=== PATIENT | female | born 1955 | race Caucasian/White ===

== ENCOUNTER 2020-07-19 06:41 | Outpatient (REF) | payer OTHER, SELFPAY ==
--- NOTE | ~2020-07-19 | XR_ITS ---
EXAMINATION: XR ELBOW, RIGHT CLINICAL INFORMATION: Fracture radial head. COMPARISON: 02/05/2021 x-ray. TECHNIQUE: AP, lateral, and oblique views of the right elbow. FINDINGS: There is sclerosis and subtle areas of lucency in the radial head suggesting some interval healing of the radial head fracture. Normal alignment at the elbow joint. Joint spaces are maintained. No additional discrete acute fracture is seen. No significant joint effusion is seen. XR/XR elbow RT min 3V IMPRESSION: Findings suggest partial healing of the radial head fracture.
== END 2020-07-19 06:42 | disposition home or self-care (01) ==
LOC: HO.LAB 06:41
PROVIDERS: Visit Provider Internal Medicine
DX: Z20.822 Contact with and (suspected) exposure to COVID-19 (principal)
CPT/HCPCS: 36415; C9803; U0003

== ENCOUNTER 2021-02-05 09:13 | Emergency (ER) | payer OTHER, SELFPAY ==
--- NOTE | ~2021-02-05 | XR_ITS ---
EXAMINATION: XR ELBOW, RIGHT CLINICAL INFORMATION: Right elbow pain status post injury. COMPARISON: None TECHNIQUE: AP, lateral, and oblique views of the right elbow. FINDINGS: The bones and soft tissues are normal. No fracture or joint effusion. Alignment is anatomic. Joint spaces are maintained. XR/XR elbow RT 2V IMPRESSION: Unremarkable right elbow.
--- NOTE | ~2021-02-05 | XR_ITS ---
EXAMINATION: XR ANKLE, RIGHT CLINICAL INFORMATION: Right ankle pain status post injury. COMPARISON: None TECHNIQUE: AP, lateral, and mortise views of the right ankle. FINDINGS: A transverse linear lucency is seen through the distal aspect of the lateral malleolus. The medial malleolus is intact. A small corticated osseous density seen along the inferolateral margin. The tibiotalar joint space is unremarkable. The soft tissues are unremarkable. XR/XR ankle RT 2V IMPRESSION: Transverse linear lucency through the distal aspect of the lateral malleolus could be secondary to chronic degenerative spurring. An acute nondisplaced fracture cannot be completely excluded. Correlate with physical exam.
--- NOTE | ~2021-02-05 | XR_ITS ---
EXAMINATION: XR FOOT, RIGHT CLINICAL INFORMATION: Base fifth toe tenderness. COMPARISON: January 23, 2017 TECHNIQUE: AP, lateral, and oblique views of the right foot. FINDINGS: There is no evidence of acute fracture or dislocation of the right foot. There is some mild degenerative change again seen involving the first metatarsophalangeal joint no radiopaque foreign body identified. Joint spaces are maintained. XR/XR foot RT 2V IMPRESSION: Mild degenerative change first metatarsophalangeal joint. Otherwise unremarkable right foot study.
[2021-02-05 09:25] VITALS: BP 153/67; PULSE 59; RESP 17; TEMP 36.9; O2SAT 96; BMI 28.1
--- NOTE | 2021-02-05 09:49 | ED_ITS ---
HPI - Fall General Chief Complaint: Fall Stated Complaint: FALL Time Seen by Provider: 02/05/21 09:49 Source: patient Mode of arrival: ambulatory Limitations: no limitations History of Present Illness HPI Narrative: patient fell yesterday on uneven ground, hit pavement with right elbow and right ankle. No LOC, did not hit head or neck. Today elbow and ankle are hurting. complaint: fall Onset (ago): day(s) Fall from: standing Fall witnessed: yes, by family Place fall occurred: other Loss of consciousness: none Related Data Previous Rx's Medication Instructions Recorded naproxen [Naprosyn] 500 mg PO BID #20 tab 02/05/21 Allergies Allergy/AdvReac Type Severity Reaction Status Date / Time No Known Allergies Allergy Verified 02/05/21 09:57 Review of Systems Constitutional: Constitutional: Reports no additional constitutional complaints Eyes: Eyes: Reports no additional eye complaints ENT: Denies dizziness Cardiovascular: Cardiovascular: Reports no additional cardiovascular complaints Respiratory: Respiratory: Reports as per HPI Gastrointestinal: Gastrointestinal: Reports no additional gastrointestinal complaints Genitourinary: Genitourinary: Reports no additional female genitourinary complaints Musculoskeletal: Musculoskeletal: Reports no additional musculoskeletal complaints Integumentary/Breasts: Skin/Breast: Denies rash Neurologic: Reports system reviewed and no additional complaints, except as documented, Denies dizziness and Denies Sensory deficit (Neuro) Psychiatric: Psychiatric: Denies anxiety [facility] Social History Social History Advance Directives: No Advance Directives Information Provided: No Physical Exam Vital Signs: Vital Signs: Last Vital Signs Temp 98.5 F 02/05/21 09:25 Pulse 59 02/05/21 09:25 Resp 17 02/05/21 09:25 BP 153/67 H 02/05/21 09:25 Pulse Ox 96 02/05/21 09:25 Body Mass Index 28.1 Const: General: healthy appearing Nutritional Appearance: average body habitus Orientation/consciousness: oriented to person and patient oriented x3 Limitations: no limitations HENMT: Head: Yes normal to inspection Ears: external ears normal General nose exam: Normal external nose present Mouth: Normal oral and palatal mucosa present and oropharynx normal Throat: Yes posterior oropharynx normal Eyes: General: appearance normal, both eyes and all related structures Neck: Other: supple Neck: Yes normal visual inspection Chest: Chest palpation & inspection: normal inspection of the chest Resp: Auscultation: clear to auscultation bilaterally Cardio: Jugular venous distension: no JVD Rate: regular rate Rhythm: regular rhythm Heart sounds: S1 normal heart sound present and S2 normal heart sound present GI: Inspection: Yes normal to inspection Palpation (GI): Soft to palpation, nontender and No hepatosplenomegaly present Auscultation: normal bowel sounds : General: Yes no CVA tenderness Back/Spine/Pelvis: Back: no CVA tenderness Skin: General skin exam: no rashes or lesions noted Neuro: General: oriented to person and patient oriented x3 Cranial nerves: Yes CN's II-XII intact bilaterally Motor exam (neuro): 5/5 motor strength present throughout Sensory Exam: No Sensory deficit (Neuro) Extrem: Other: right elbow with some swelling decreased range of motion, right foot with ecchymosis pain at the base of the 5th Psych: Appearance: grossly normal Course Reevaluation(s) Reevaluation #1: patient with right radial head fracture will place posterior splint on and place in sling Time: 10:59 MDM - Fall Imaging Data right foot: Radiologist's impression: IMPRESSION: Mild degenerative change first metatarsophalangeal joint. right elbow: Radiologist's impression: transverse fracture of radial head right ankle: Radiologist's impression: IMPRESSION: Transverse linear lucency through the distal aspect of the lateral malleolus could be secondary to chronic degenerative spurring. An acute nondisplaced fracture cannot be completely excluded. Correlate with physical exam. Discharge Plan Discharge Clinical Impression: Elbow fracture, right Qualifiers: Encounter type: initial encounter Fracture type: closed Qualified Code(s): S42.401A - Unspecified fracture of lower end of right humerus, initial encounter for closed fracture Contusion of foot Qualifiers: Encounter type: initial encounter Laterality: right Qualified Code(s): S90.31XA - Contusion of right foot, initial encounter Patient Disposition: Home, Self-Care Instructions: Elbow Fracture (ED), Foot Contusion (ED) Prescriptions: New naproxen [Naprosyn] 500 mg tablet 500 mg PO BID Qty: 20 RF: 0 Referrals: Andrea Bernal MD [Primary Care Provider] - 1 week Carrington Madera MD [Physician] - 1 week
[2021-02-05] MEDS: NaPROXEN 500 MG TABLET PO (10:46)
== END 2021-02-05 12:10 | disposition home or self-care (01) ==
PROVIDERS: Emergency Provider Emergency Medicine; PCP Internal Medicine
DX: S42.401A Unspecified fracture of lower end of right humerus, initial encounter for closed fracture (principal); S90.31XA Contusion of right foot, initial encounter; W01.0XXA Fall on same level from slipping, tripping and stumbling without subsequent striking against object, initial encounter; Y93.01 Activity, walking, marching and hiking; Y92.480 Sidewalk as the place of occurrence of the external cause; Y99.9 Unspecified external cause status
CPT/HCPCS: 29105; 73070; 73600; 73620; 99283

== ENCOUNTER → 2021-02-13 14:44 | Outpatient (BNVA) | payer OTHER, SELFPAY | PROVIDERS: Visit Provider Physician Assistant | DX: S52.123A Displaced fracture of head of unspecified radius, initial encounter for closed fracture (principal) ==

== ENCOUNTER → 2021-03-13 08:29 | Outpatient (BNVA) | payer OTHER, SELFPAY | PROVIDERS: PCP Internal Medicine; Visit Provider Physician Assistant | DX: S52.123A Displaced fracture of head of unspecified radius, initial encounter for closed fracture (principal) | CPT/HCPCS: 73080 ==

== ENCOUNTER 2024-10-02 08:41 | Outpatient (REF) | payer OTHER, SELFPAY ==
--- NOTE | ~2024-10-02 | XR_ITS ---
EXAMINATION: XR HIP, RIGHT CLINICAL INFORMATION: M25.551 - Pain in right hip COMPARISON: July 04, 2016. TECHNIQUE: Two views of the right hip. FINDINGS: Sclerosis along the articular surface of the right acetabulum right femoral head with associated subchondral cyst formation. There is asymmetric joint space narrowing, right coxofemoral joint. Sclerosis and the articular surface of the left acetabulum. Asymmetric joint space narrowing, left coxofemoral joint. Exostosis in the greater trochanters both femurs. No acute cortical disruption or malalignment in either hip. XR/XR hip RT min 2V IMPRESSION: Moderate to severe osteoarthrosis, right hip. Mild to moderate osteoarthrosis, left hip. Electronically signed by: Rico Christopher MD 10/05/2024 08:36 AM EDT
== END 2024-10-02 08:42 | disposition home or self-care (01) ==
LOC: HO.HOSX 08:41
PROVIDERS: Visit Provider Physician Assistant
DX: M25.551 Pain in right hip (principal); M16.11 Unilateral primary osteoarthritis, right hip
CPT/HCPCS: 73502; 99202

== ENCOUNTER 2024-10-02 10:05 | Outpatient (AMB) | payer MEDICARE, OTHER, SELFPAY ==
--- NOTE | 2024-10-02 10:13 | A.OFFVIS_ITS ---
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 Patient reports her pain has been present since April. Denies injury. Her pain is mostly located at the posterior aspect of hip and with stretching her leg she has discomfort in her groin. Her pain radiates down her leg to her knee and wraps around her knee. Her pain is constant and has difficulty sleeping at night. States at times her knee wants to give out, denies fall. She feels like she limps. She uses a knee sleeve that helps with pressure. She attended chiro services for a couple of months however this did not help. She also tried orthopedic and in soles which did not help. Finds temporary relief with taking ibuprofen prn at night. 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 She states the pain has been present since around April. She continues to have difficulty with daily activities such as walking, getting in and out of a car and getting out of a seated position. She states she used to walk with friends but has had to limit that given her difficulty with ambulation. She states the pain is located in the groin region which does go down her leg at times. She denies numbness or tingling. No burning sensation. No low back pain. [facility] Social History (Updated 10/02/24 @ 10:19 by Lilia Rollins Gem) Patient Tobacco Use Status: Never used Tobacco Current occupational status: retired Current occupation: right arm Review of Systems Const All systems reviewed & are unremarkable except as noted in HPI and below Physical Exam Vital Signs: BMI result Body Mass Index 25.5 Const General: cooperative and no acute distress Orientation/consciousness: patient oriented x3 Resp Effort & Inspection: normal respiratory effort and able to speak in complete sentences Cardio Peripheral pulses: Peripheral pulses 2+ throughout Neuro General: patient oriented x3 Extrem Other: Right hip normal to inspection limited range of motion on exam. She walks with antalgic gait. Neurovascularly intact. Results Reviewed Results Reviewed: X-rays of the right hip obtained in the office today are significant for severe degenerative changes Assessment & Plan Assessment & Plan (1) Arthritis of right hip: Code(s): M16.11 - Unilateral primary osteoarthritis, right hip Category: Medical Plan: We had a lengthy discussion about the extent of his OA and options available which include surgical intervention. She e is interested in pursuing total hip arthroplasty to improve her functional capacity and daily activities. I explained to her the procedure in detail, the hospital stay and details about post op rehab and precautions. She does understand all this and would like to move forward. I did put her in contact with our Nurse Navigator, Ekta who will set her up with pre op planning and book accordingly. All questions were answered. Orders: Orders XR hip RT min 2V 10/02/24 M25.551 - Pain in right hip Coding Level of Care Code New Pt Level 4 (08085) Complex EM visit Add On G2211 Diagnoses Arthritis of right hip M16.11
[2024-10-02 10:20] VITALS: BMI 25.5
== END 2024-10-02 11:11 | disposition home or self-care (01) ==
LOC: HO.HOS 10:06
PROVIDERS: PCP Internal Medicine; Visit Provider Physician Assistant
DX: M16.11 Unilateral primary osteoarthritis, right hip (principal)
CPT/HCPCS: 99204; G2211

== ENCOUNTER → 2024-10-02 10:07 | Outpatient (BNV) | payer OTHER, SELFPAY | PROVIDERS: Visit Provider Radiology Diagnostic Radiology | DX: M16.11 Unilateral primary osteoarthritis, right hip (principal) | CPT/HCPCS: 73502 ==

== ENCOUNTER 2024-11-09 09:26 | Outpatient (AMB) | payer MEDICARE, OTHER, SELFPAY ==
--- NOTE | 2024-11-09 09:29 | MHC.OFFVIS ---
Vital Signs 11/09/24 09:31 Height 5 ft 7 in Weight 165 lb BMI 25.8 Intake Visit Reasons: OV-discuss surgery- right HOMER Intake Note: Rebeka is a 69 year old female who presents today for a follow up of her Right Hip OA. She was last seen with Robbin Guardado where she reported pain ongoing since April of 2024. Her pain worsens and interferes with daily activities, pain occasionally will radiate down the entire leg. She would like to further discuss Right HOMER. Allergies No Known Allergies Allergy (Verified 10/02/24 10:18) HPI HPI OV-discuss surgery- right HOMER: Details: 69 yo F with ~9 mo of right groin and laterl hip pain. She has difficulty walking for more than 5 minutes. She has pain getting into and out of an automobile or twisting or going up and downstairs. She states quality of her life is poor. She can not engage in her daily activities without significant distress and pain. [facility] Social History (Updated 10/02/24 @ 10:19 by Lilia Rollins [facility] Patient Tobacco Use Status: Never used Tobacco Current occupational status: retired Current occupation: right arm Physical Exam Vital Signs: BMI result Body Mass Index 25.8 Extrem Other: Positive Trendelenburg gait. Positive antalgic gait. Positive impingement test. 2+ dorsalis pedis pulse. Firing EHL/tib ant/gastrocs. Calf soft and supple Results Reviewed Results Reviewed: I personally reviewed relevant radiographs. Severe right hip osteoarthritis Assessment & Plan Assessment & Plan (1) Arthritis of right hip: Code(s): M16.11 - Unilateral primary osteoarthritis, right hip Category: Medical Plan: This is a 69-year-old with right hip osteoarthritis that is severe. She is extremely healthy and her exam is benign other than right hip pain with internal rotation. I recommend right hip replacement. She understands her diagnosis and understands the treatment. I discussed the risks, benefits and alternatives of surgery including, but not limited to, the risk of infection, fracture, dislocation as well as medical complications associated with surgery such as pneumonia, urinary tract infections, blood clot, PE. She expressed understanding and we will proceed forward accordingly. Coding Level of Care Code Est Pt Level 4 (66610) Diagnoses Arthritis of right hip M16.11
[2024-11-09 09:31] VITALS: BMI 25.8
== END 2024-11-09 10:23 | disposition home or self-care (01) ==
LOC: HO.HOS 09:26
PROVIDERS: PCP Internal Medicine; Visit Provider Orthopaedic Surgery
DX: M16.11 Unilateral primary osteoarthritis, right hip (principal)
CPT/HCPCS: 99214

== ENCOUNTER → 2024-11-09 09:26 | Outpatient (BNVA) | payer MEDICARE, OTHER, SELFPAY | PROVIDERS: PCP Internal Medicine; Visit Provider Orthopaedic Surgery | DX: M16.11 Unilateral primary osteoarthritis, right hip (principal) | CPT/HCPCS: 99212 ==

== ENCOUNTER → 2025-01-11 08:45 | Outpatient (BNVA) | payer MEDICARE, OTHER, SELFPAY | PROVIDERS: PCP Internal Medicine | DX: Z01.818 Encounter for other preprocedural examination (principal) ==

== ENCOUNTER 2025-02-04 09:43 | Outpatient (AMB) | payer MEDICARE, OTHER, SELFPAY ==
--- NOTE | 2025-02-04 09:48 | MHC.OFFVIS ---
Vital Signs 02/04/25 09:52 Height 5 ft 7 in Weight 165 lb BMI 25.8 Intake Visit Reasons: Pre-Op: R HOMER w/NE 02/09/25 Intake Note: Rebeka is a 69 year old female who presents today for a preoperative RT HOMER, DOS 02/09/[address] Madera. Pain management agreement was given to patient to be reviewed and signed. Allergies No Known Allergies Allergy (Verified 02/04/25 09:52) Medication List - Last Reconciled 02/04/25 by Robbin Guardado PA-C acetaminophen (Acetaminophen Extra Strength) 500 mg PO DAILY PRN ascorbic acid (vitamin C) (Vitamin C) 500 mg PO DAILY aspirin (Adult Low Dose Aspirin) 81 mg PO DAILY ibuprofen 800 mg PO DAILY PRN zecneruh-dagvfyo-stij-lutein 1 tab PO DAILY [Raised toilet seat duration - 99 days] [SHOWER CHAIR As directed duration 99 days] walker Folding Front wheeled walker duration 99 days HPI Comments Details: Ms Thompson presents to the office today for preop visit. She is scheduled for right total hip arthroplasty with Dr. Madera. She continues to have ongoing pain and difficulty with ambulation in the right hip, which is affecting her quality of life; therefore, she has elected to move forward with surgery. No h/o cancer, smoking or DVT She has a walker at home [facility] Medical History (Updated 01/12/25 @ 10:06 by Bettie Dorsey RN) Arthritis Surgical History Hx of hernia repair Hx of wisdom tooth extraction H/O colonoscopy Social History Are you a primary career development consultant to a significant other at home: No Do you presently have visiting nurse or other home services: No Patient Tobacco Use Status: Former Tobacco user Tobacco use type: Cigarette Years Smoked: 20 Current occupational status: retired Current occupation: right arm Review of Systems Const All systems reviewed & are unremarkable except as noted in HPI and below Physical Exam Vital Signs: BMI result Body Mass Index 25.8 Extrem Other: Right hip skin intact. Positive Trendelenburg gait. Positive antalgic gait. Positive impingement test. 2+ dorsalis pedis pulse. Firing EHL/tib ant/gastrocs. Calf soft and supple Assessment & Plan Assessment & Plan (1) Arthritis of right hip: Code(s): M16.11 - Unilateral primary osteoarthritis, right hip Category: Medical Plan: I discussed in detail the procedure and what to expect pre and post operatively. We discussed the risks, benefits and alternatives to the surgery as well as the rehabilitation course. The risks; which include, but are not limited to infection, bleeding, nerve injury, ongoing pain, swelling, and stiffness, perioperative risk of injury to bones and soft tissues, and blood clots. I?ve answered all questions and with their understanding they have consented to move forward with Right total hip arthroplasty with Dr. Madera Her discharge plan is to go home with VNA services She has no history of DVT, cancer or smoking therefore she can be placed on aspirin 325 mg p.o. b.i.d. for DVT prophylaxis We discussed her postop physical therapy plan which [place] [facility] An order was placed and she was given their contact information to make an appointment to begin after her postop appointment. Orders: Orders Basic Metabolic Panel 02/04/25 Z01.818 - Encounter for other preprocedural examination Complete Blood Count Auto Diff 02/04/25 Z01.818 - Encounter for other preprocedural examination PT Evaluation and Treatment 02/04/25 Z96.641 - Presence of right artificial hip joint Type and Screen 02/04/25 Z01.818 - Encounter for other preprocedural examination Coding Level of Care Code Est Pt Level 3 (81647) Complex EM visit Add On G2211 Diagnoses Arthritis of right hip M16.11
[2025-02-04 09:52] VITALS: BMI 25.8
== END 2025-02-04 10:33 | disposition home or self-care (01) ==
LOC: HO.HOS 09:44
PROVIDERS: PCP Internal Medicine; Visit Provider Physician Assistant
DX: M16.11 Unilateral primary osteoarthritis, right hip (principal)
CPT/HCPCS: 99213; G2211

== ENCOUNTER → 2025-02-04 09:43 | Outpatient (BNVA) | payer MEDICARE, OTHER, SELFPAY | PROVIDERS: PCP Internal Medicine; Visit Provider Physician Assistant | DX: Z01.818 Encounter for other preprocedural examination (principal); M16.11 Unilateral primary osteoarthritis, right hip | CPT/HCPCS: 99212 ==

== ENCOUNTER 2025-02-09 07:48 | Day surgery (SDC) | payer MEDICARE, OTHER, SELFPAY ==
[2025-01-12 10:15] VITALS: BP 154/67; PULSE 73; RESP 20; O2SAT 98; BMI 26.2
--- NOTE | 2025-01-12 10:35 | HO.ANESPROP2 ---
Documented by User: Dorina Sims NP 02/08/25 08:44 HPI - Anesthesia Eval Consult details Narrative: 69yo F for Right Total Hip Arthroplasty, 02/09/25 Medically optimized per [facility] No recent illness No CP/SOB with stationary bike. Only limited by hip pain PMFSH Active Problems Active Problems: All Active Problems Arthritis of right hip (Acute) Radial head fracture (Acute) Past Medical History Medical History Arthritis Family History Family history of problems with anesthesia: No Surgical History Surgical History Hx of hernia repair Hx of wisdom tooth extraction H/O colonoscopy History of Problems with Anesthesia: No Social History Social History Are you a primary insurance healthcare representative to a significant other at home: No Do you presently have visiting nurse or other home services: No Patient Tobacco Use Status: Former Tobacco user Tobacco use type: Cigarette Years Smoked: 20 Use of substances other than those prescribed or required for medical reasons: No Have you been hit, kicked, punched, or otherwise hurt by someone within the past year? If so, by whom?: No Spiritual Healthcare Practices: no [facility] Practices: no Cultural Healthcare Practices: no Are you DNR?: No Advance Directives Information Provided: Yes (as above noted) Advance Directives on File: No FDLMP: n/a Poor oral hygiene: No (one cap upper right front and multiple crowns, permanent bridge) Current occupational status: retired Current occupation: right arm Meds Allergies Allergy/AdvReac Type Severity Reaction Status Date / Time No Known Allergies Allergy Verified 02/04/25 09:52 Home Medications ?Medication ?Instructions ?Recorded ?Confirmed ?Last Taken ?Type aspirin 81 mg tablet,delayed 81 mg PO DAILY 02/13/21 02/04/25 01/26/25 History release (Adult Low Dose Aspirin) jbaxehlj-huoqsia-mzdj-lutein tablet 1 tab PO DAILY 10/02/24 02/04/25 01/26/25 History acetaminophen 500 mg tablet 500 mg PO DAILY PRN Pain 01/12/25 02/04/25 02/08/25 History (Acetaminophen Extra Strength) ascorbic acid (vitamin C) 500 mg 500 mg PO DAILY 01/12/25 02/04/25 01/26/25 History tablet (Vitamin C) ibuprofen 200 mg tablet 800 mg PO DAILY PRN Pain 01/12/25 02/04/25 01/26/25 History Exam Height,Weight and Vital Signs: Height 5 ft 7 in Weight 75.75 kg Last Vital Signs Pulse 73 01/12/25 10:15 Resp 20 01/12/25 10:15 BP 154/67 H 01/12/25 10:15 Pulse Ox 98 01/12/25 10:15 O2 Del Method Room Air 01/12/25 10:15 Pertinent Lab Results Pertinent Lab Results: Hematology ? ? Event Name? Event Result? Date/Time? WBC 7.6 k/mm3 12/15/24 09:00:00 RBC 4.5 m/mm3 12/15/24 09:00:00 Hgb 13.8 Gm/dL 12/15/24 09:00:00 Hct 42.9 % 12/15/24 09:00:00 MCV 95.3 femtoliters 12/15/24 09:00:00 MCH 30.7 pg 12/15/24 09:00:00 MCHC 32.2 Gm/dL?Low 12/15/24 09:00:00 Platelet Count 293 k/mm3 12/15/24 09:00:00 RDW-SD 45 femtoliters 12/15/24 09:00:00 MPV 9.7 femtoliters 12/15/24 09:00:00 Nucleated RBC (Automated) 0 #/100 WBC'S 12/15/24 09:00:00 Abs. NRBC 0 k/mm3 12/15/24 09:00:00 Abs. Neut 4.8 k/mm3 12/15/24 09:00:00 Abs. Lymph 1.8 k/mm3 12/15/24 09:00:00 Abs. [place] 0.7 k/mm3 12/15/24 09:00:00 Abs. Eo 0.2 k/mm3 12/15/24 09:00:00 Abs. Baso 0.1 k/mm3 12/15/24 09:00:00 Neut % 62.7 % 12/15/24 09:00:00 Lymph % 23.9 % 12/15/24 09:00:00 [place] % 9.1 % 12/15/24 09:00:00 Eos % 2.6 % 12/15/24 09:00:00 Baso % 0.9 % 12/15/24 09:00:00 Imm Gran 0.8 % 12/15/24 09:00:00 Abs. Imm Gran 0.1 k/mm3 12/15/24 09:00:00 INR 1 12/15/24 09:00:00 Protime (PT) 10.9 seconds 12/15/24 09:00:00 APTT 26.2 seconds 12/15/24 09:00:00 ? Chemistry ? ? Event Name? Event Result? Date/Time? Sodium 141 mmol/L 12/15/24 09:00:00 Potassium 5.4 mmol/L?High 12/15/24 09:00:00 Chloride 105 mmol/L 12/15/24 09:00:00 Bicarbonate Level 23 mmol/L 12/15/24 09:00:00 Anion Gap 13 mmol/L 12/15/24 09:00:00 Glucose Level 102 mg/dL?High 12/15/24 09:00:00 Hemoglobin A1C (Monitoring) 5.6 % 12/15/24 09:00:00 BUN 14 mg/dL 12/15/24 09:00:00 Creatinine-Blood 0.64 mg/dL 12/15/24 09:00:00 Estimated GFR Creatinine 96 ML/MIN/1.73 M2 12/15/24 09:00:00 Calcium 10 mg/dL 12/15/24 09:00:00 Narrative Narrative: EKG 12/2024 Ventricular Rate: 70 ?BPM Atrial Rate: 70 ?BPM P-R Interval: 156 ?ms QRS Duration: 74 ?ms Q-T Interval: 372 ?ms QTC Calculation(Bazett): 401 ?ms P Kennedy: 69 ?degrees R Kennedy: 92 ?degrees T Kennedy: 43 ?degrees Normal sinus rhythm Rightward axis Junctional ST depression, probably normal Borderline ECG No previous ECGs available?[1] Airway Mallampati Class: II TM Dist: >3cm Neck ROM: Full Loose/Missing/Broken Teeth: No (#8 implant, R upper perm bridge) Heart: RRR Lungs: CTAB Assessment and Plan Assessment Anesthesia Assessment: Anesthesia Plan Discussed and PAT Visit Final Anesthetic Review Family History of Problems with Anesthesia: No History of Problems with Anesthesia: No Documented by User: Liliana Resendez MD 02/09/25 09:32 PMFSH Past Medical History Medical History Arthritis Surgical History Surgical History Hx of hernia repair Hx of wisdom tooth extraction H/O colonoscopy Social History Social History Are you a primary insurance healthcare representative to a significant other at home: No Do you presently have visiting nurse or other home services: No Patient Tobacco Use Status: Former Tobacco user Tobacco use type: Cigarette Years Smoked: 20 Use of substances other than those prescribed or required for medical reasons: No Have you been hit, kicked, punched, or otherwise hurt by someone within the past year? If so, by whom?: No Spiritual Healthcare Practices: no [facility] Practices: no Cultural Healthcare Practices: no Are you DNR?: No Advance Directives Information Provided: Yes (as above noted) Advance Directives on File: No FDLMP: n/a Poor oral hygiene: No (one cap upper right front and multiple crowns, permanent bridge) Current occupational status: retired Current occupation: right arm Meds Allergies Allergy/AdvReac Type Severity Reaction Status Date / Time No Known Allergies Allergy Verified 02/04/25 09:52 Home Medications ?Medication ?Instructions ?Recorded ?Confirmed ?Last Taken ?Type aspirin 81 mg tablet,delayed 81 mg PO DAILY 02/13/21 02/04/25 01/26/25 History release (Adult Low Dose Aspirin) nkqzdaye-skuvesa-egue-lutein tablet 1 tab PO DAILY 10/02/24 02/04/25 01/26/25 History acetaminophen 500 mg tablet 500 mg PO DAILY PRN Pain 01/12/25 02/04/25 02/08/25 History (Acetaminophen Extra Strength) ascorbic acid (vitamin C) 500 mg 500 mg PO DAILY 01/12/25 02/04/25 01/26/25 History tablet (Vitamin C) ibuprofen 200 mg tablet 800 mg PO DAILY PRN Pain 01/12/25 02/04/25 01/26/25 History Assessment and Plan Assessment Anesthesia Assessment: Chart Reviewed Final Anesthetic Review NPO: Yes ASA Class: II Final Preanesthetic Review: No Changes in Pt Med Stat, Meds/Allgs Chart Reviewed, Consent Obtained/Reviewed and Anes Risks/Benef Reviewed Patient Risk: Low Procedure Risk: Intermediate Anesthetic Plan Anesthetic Plan: GA and Agree w/ Assess. and Plan Disposition: Standard PACU
[2025-01-12 12:24] LABS: MRSA Nasal PCR NEGATIVE (Negative); SA Nasal PCR NEGATIVE (Negative)
[2025-02-04 10:40] LABS: MANUAL DIFF FLAG NO
[2025-02-04 11:09] LABS: Hematocrit 42.1 % (37.0-47.0); Hemoglobin 14.0 g/dl (12.0-16.0); Imm Gran Abs Auto 0.05 X10*3/uL (0.00-0.03); Imm Gran Pct Auto 0.6 % (0.0-0.4); Lymphocytes Absolute Auto 2.3 X10*3/uL (1.2-4.9); Mean Corpuscular HGB Conc 33.3 g/dl (31.0-35.0); Mean Corpuscular Hemoglobin 31.0 pg (27.0-33.0); Mean Corpuscular Volume 93.1 fL (80.0-98.0); NRBC Abs Auto 0.000 X10*3/uL (0.0-0.012); NRBC Pct Auto 0.0 /100WBC (0.0-0.2); Platelet Count 299 X10*3/uL (160-400); Red Blood Count 4.52 X10*6/uL (4.20-5.50); White Blood Count 8.1 X10*3/uL (4.8-10.8)
[2025-02-04 11:38] LABS: Anion Gap 13 (12-20); Blood Urea Nitrogen 16 mg/dL (9-16); Calcium 9.9 mg/dL (8.4-10.2); Carbon Dioxide 24 mmol/L (22-29); Chloride 108 mmol/L (96-108); Creatinine Clr Calc Pharmacy 81.6; Estimated Glomerular Filt Rate > 60; Potassium 4.4 mmol/L (3.3-5.1); Sodium 141 mmol/L (135-145)
[2025-02-09] VITALS (12 sets, daily range): BP systolic 114–168; BP diastolic 55–72; PULSE 58–83; RESP 12–20; TEMP 36.3–36.8; O2SAT 95–98; BMI 26.3
--- NOTE | ~2025-02-09 | XR_ITS ---
EXAMINATION: XR PELVIS CLINICAL INFORMATION: RT HOMER COMPARISON: July 04, 2016. TECHNIQUE: AP view of the pelvis. FINDINGS: There is a metallic right hip prosthesis with an acetabular and femoral component well-seated in the osseous structures demonstrate no gross malalignment or cortical disruption. Skin vincenzo overlapping the soft tissues of the right hip. Degenerative changes in the left coxofemoral joint. Sclerosis and the sacroiliac joints. Levoconvex curvature lower lumbar spine. Facet joint hypertrophy at L5-S1. Marginal osteophyte formation L4-5.. XR/XR pelvis 1-2V IMPRESSION: Total right hip arthroplasty prosthesis without gross malalignment. Electronically signed by: Rico Christopher MD 02/09/2025 03:40 PM EDT
[2025-02-09] MEDS: oxyCODONE HCl ER 10 MG TAB.ER.12H PO ×2 (08:04→20:44)
[2025-02-09] MEDS: Lactated Ringers 1,000 ML 100 ML IVCONT ×2 (08:41→17:01)
--- NOTE | 2025-02-09 09:15 | MHC.SHP ---
Pre-Procedural Eval Section A - 24 Hr Update-Section A only Date of Service: 02/09/25 The patient is an INPATIENT: No Changes since office visit: No Cold of Flu in the past 2 weeks, No New Medical Problems, No Changes in Medication and No Patient answered all questions The patient has been examined within 24 hours of the surgical procedure. The History & Physical has been completed within 30 days and I have reviewed it.: Yes Section B - Complete if H&P > 30 days Chief Complaint: Unilateral primary osteoarthritis, right hip Allergies: Allergies Allergy/AdvReac Type Severity Reaction Status Date / Time No Known Allergies Allergy Verified 02/04/25 09:52 Plan I have reviewed the history and physical and performed a pertinent physical examination on my patient. No changes have occurred unless specified. Time Spent With Patient Time: Total time managing care of this patient today ____ minutes.
--- NOTE | 2025-02-09 16:50 | P.BOP_ITS ---
Brief Operative Note Date of Service: 02/09/25 Pre-op diagnosis: Right hip OA Post-op diagnosis: same Procedure: Right HOMER Implants: [place] Trident2 54 multi-hole / 2 acetabular acrews/ 20 deg liner Styrker Accolade2 #4 132 with +0/36 ceramic Surgeon: Carrington Madera MD Anesthesia: GETA and local Was an Licensed Electrician used for this Procedure?: Yes Licensed Electrician: Robbin Guardado Estimated blood loss (mL): 200 IV fluids (mL): 800 Pathology: other Condition: stable Disposition: PACU
[2025-02-09] MEDS: 0.9 % Sodium Chloride Flush 3 ML SYRINGE IVFLUSH ×2 (17:00→20:45)
--- NOTE | 2025-02-09 21:02 | PM.DS ---
DS: Providers Provider Date of Service: 02/09/25 <Robbin Guardado PA-C - Last Filed: 02/09/25 21:03> Date of discharge: 02/10/25 <Robbin Guardado PA-C - Last Filed: 02/09/25 21:03> Primary care physician: Andrea Bernal MD <Robbin Guardado PA-C - Last Filed: 02/09/25 21:03> Consults: 02/09/25 16:39 Consult to Hospitalist Routine Comment: Consulting Provider: [facility] Reason For Exam: medical management <ALEJANDRO Nevarez Last Filed: 02/09/25 21:03> DS: Diagnosis Discharge Diagnosis (1) History of total replacement of right hip: Status: Acute <ALEJANDRO Nevarez Last Filed: 02/09/25 21:03> DS: Summary Hospital Course Hospital Course: The patient underwent a successful right total hip arthroplasty on 02/09/25, was transferred to PACU and then to the floor to recover. During their stay, their vitals were stable, afebrile at 98.0. Labs were unremarkable, H/H 11.3/33.9. POD 1 he was started on asa 325mg tabs po bid twice a day for DVT ppx, they also received Physical Therapy / Occupational therapy services twice a day. Physical therapy / Occupation therapy should include gait training, core and lumbar strength, glute strength. Posterior precautions intact. WBAT. Prior to discharge, her dressing was changed, incision clean dry and intact, new Aquacel dressing applied. The Aquacel dressing should remain intact and dry at all times. Any concerns with the dressing, please contact orthopedic office. No showering. The plan is to be discharged home with VNA <ALEJANDRO Nevarez Last Filed: 02/09/25 21:03> Time Attestation Discharge Coordination Time (in mins): 30 <ALEJANDRO Smith Last Filed: 02/10/25 09:48> Quality: Safe Use of Opioids Does Pt have an Active Cancer Diagnosis on the Problem List?: No <ALEJANDRO Smith Last Filed: 02/10/25 09:48> Quality: Stroke Does the patient have a stroke diagnosis?: No <Shaniqua Mccloud PA-C - Last Filed: 02/10/25 09:48> Physical Exam Vital Signs: Vital Signs: Last Vital Signs Temp 97.9 F 02/09/25 19:53 Pulse 73 02/09/25 19:53 Resp 18 02/09/25 19:53 BP 140/65 H 02/09/25 19:53 Pulse Ox 96 02/09/25 19:53 O2 Del Method Room Air 02/09/25 19:53 O2 Flow Rate 2 02/09/25 17:26 BMI result Body Mass Index 26.3 <Robbin Guardado PA-C - Last Filed: 02/09/25 21:03> Extrem: Other: rt hip dressing is c/d/i. Able to dorsi/plantar flex. Calf is supple and nontender. Sensation intact. Pedal pulse intact. <Shaniqua Mccloud PA-C - Last Filed: 02/10/25 09:48> DS: Data Data Completed and Pending Pending studies at discharge: Pending at discharge 02/09/25 14:03 Surgical [PTH] Routine <Robbin Guardado PA-C - Last Filed: 02/09/25 21:03> Discharge Plan Discharge Patient Disposition: Home Health Service <Robbin Guardado PA-C - Last Filed: 02/09/25 21:03> Referrals: [facility] [Outside] - 3-5 Days Referral Note: [facility] will call you to schedule home physical therapy appointments Robbin Guardado PA-C [Physician Telephone Instrument Supervisor, Orthopedics] - 1 Week Referral Note: 02/25/25 09:45 [facility] Robbin Guardado PA-C <Robbin Guardado PA-C - Last Filed: 02/09/25 21:03> Discharge Medications: New celecoxib 200 mg Capsule 200 mg PO BID 30 Days Qty: 60 0RF acetaminophen 325 mg Tablet 650 mg PO Q6H PRN (Reason: Pain, Mild 1-3,Fever,Headache) 30 Days Qty: 240 0RF aspirin 325 mg Tablet 325 mg PO BID 42 Days Qty: 84 0RF docusate sodium 100 mg Capsule 100 mg PO BID 14 Days Qty: 28 0RF oxycodone 5 mg Tablet 5 mg PO Q4H PRN (Reason: Pain, Moderate(Pain Scale 4-6)) 7 Days Qty: 42 0RF Rx Instructions: Partial Fill upon patient request. Continued (DME) walker Misc See Rx Instructions .MEDSUPPLY Qty: 1 0RF Rx Instructions: Folding Front wheeled walker duration 99 days (DME) SHOWER CHAIR See Rx Instructions .ROUTE .MEDSUPPLY Qty: 1 0RF Rx Instructions: As directed duration 99 days (DME) Raised toilet seat See Rx Instructions .ROUTE .MEDSUPPLY Qty: 1 0RF Rx Instructions: duration - 99 days ascorbic acid (vitamin C) [Vitamin C] 500 mg Tablet 500 mg PO DAILY wwbjuqty-qampmek-xzwm-lutein Tablet 1 tab PO DAILY Held ibuprofen 200 mg Tablet 800 mg PO DAILY PRN (Reason: Pain) Hold Instructions: Resume on 03/26/25. aspirin [Adult Low Dose Aspirin] 81 mg tablet,delayed release (DR/EC) 81 mg PO DAILY Hold Instructions: Resume on 03/26/25. Discontinued acetaminophen [Acetaminophen Extra Strength] 500 mg Tablet 500 mg PO DAILY PRN (Reason: Pain) <Robbin Guardado PA-C - Last Filed: 02/09/25 21:03> Discharge Orders: Discharge Order (Routine); Ordered 02/10/25 Ordered By: Shaniqua Mccloud <Robbin Guardado PA-C - Last Filed: 02/09/25 21:03> Diet: Regular diet <Robbin Guardado PA-C - Last Filed: 02/09/25 21:03> Regular diet <Shaniqua Mccloud PA-C - Last Filed: 02/10/25 09:48> Activity on Discharge: Use cane or walker <Robbin Guardado PA-C - Last Filed: 02/09/25 21:03> Use cane or walker <Shaniqua Mccloud PA-C - Last Filed: 02/10/25 09:48> Activity Restrictions/Additional Instructions: Physical Therapy for Total hip arthroplasty: wbat, posterior precautions, gait training, ROM, strength Limit stair climbing No showering, no tub bath-keep dressing clean, dry and intact No driving x6 weeks Continue Lovenox once a day x 6 weeks Follow up with [facility] in 2 weeks: --you will also have your first out patient PT christina on the day of your post op appt-so please plan on being in the office that day for an extended period of time. <Robbin Guardado PA-C - Last Filed: 02/09/25 21:03> Print Language: Welsh <Robbin Guardado PA-C - Last Filed: 02/09/25 21:03>
--- NOTE | 2025-02-09 21:04 | W.MHC.F2F ---
Service Date Service Date: 02/09/25 Encounter Date of encounter: 02/09/25 Reasons for Services Signs and symptoms assessed: Weakness, poor balance, poor gait mechanics Reason for physical therapy: home safety and mobility, therapeutic exercises, restore joint function, gait/transfer training, ADL training and energy conservation Reason for occupational therapy: home safety and mobility, therapeutic exercises, restore joint function, gait/transfer training, ADL training and energy conservation Overseeing Care: Carrington Madera Homebound: Leaving the home is medically contraindicated at this time without the asist of a device and/or another person due th the listed conditions above and below. Reason homebound: unsteady gait / fall risk, pain with ambulation, poor balance / fall risk and unable to drive Homebound supporting statement: Pt. is considered home bound due to recent surgery. Unable to drive, poor balance, poor gait mechanics. Certification: Based on the above findings, I certify that this patient is confined to the home and needs intermittent group home care, physical therapy and/or speech therapy, or continues to need occupational therapy. The patient is under my care, and I have initiated the establishment of the plan of care. The patient will be followed by a physician who will periodically review the plan of care. Time Spent With Patient Time: Total time managing care of this patient today ____ minutes.
--- NOTE | 2025-02-09 22:03 | HO.PM.IMCN ---
History of Present Illness Data of Consult Service Date: 02/09/25 Requesting physician: Carrington Madera Primary Care Provider: Andrea Bernal MD [facility] Reason for consult: medical management Patient is a 69-year-old female with a past medical history significant for arthritis, s/p right total hip arthroplasty today. The patient denies any current symptoms including chest pain, shortness of breath, nausea or vomiting. She has been able to urinate without difficulty and has been able to get out of bed and weightbear. Medical history and medications were reviewed with the patient. She reports moderate pain in the right hip. Review of Systems Constitutional: Constitutional: Denies body ache(s), Denies chills, Denies fatigue, Denies fever(s) and Denies headache(s) Eyes: Eyes: Denies change in vision ENT: Denies headache(s), Denies nasal congestion and Denies sore throat Cardiovascular: Cardiovascular: Denies chest pain, Denies rapid heart rate, Denies lightheadedness and Denies dyspnea Respiratory: Respiratory: Denies cough, Denies dyspnea and Denies wheezing Gastrointestinal: Gastrointestinal: Denies nausea and Denies vomiting Genitourinary: Genitourinary: Denies difficulty voiding, Denies dysuria and Denies urinary urgency Musculoskeletal: Musculoskeletal: Denies back pain Integumentary/Breasts: Skin/Breast: Denies rash Neurologic: Denies confusion and Denies headache(s) Psychiatric: Psychiatric: Denies confusion Endocrine: Endocrine: Denies fatigue Hematologic/Lymphatic: Hematologic/Lymphatic: Denies easy bleeding and Denies easy bruising Allergic/Immunologic: Allergic/Immunologic: Denies wheezing [facility] Medical History Arthritis Surgical History Hx of hernia repair Hx of wisdom tooth extraction H/O colonoscopy Social History Household Members: Spouse Housing: House Are you a primary director career services to a significant other at home: No Do you presently have visiting nurse or other home services: No Patient Tobacco Use Status: Former Tobacco user Tobacco use type: Cigarette Years Smoked: 20 Smoked in Last 30 Days: No Use of substances other than those prescribed or required for medical reasons: No Have you been hit, kicked, punched, or otherwise hurt by someone within the past year? If so, by whom?: No Spiritual Healthcare Practices: no Latter-Day Healthcare Practices: no Cultural Healthcare Practices: no Are you DNR?: No Advance Directives Information Provided: Yes (as above noted) Advance Directives on File: No Recently lost weight without trying: No Nutrition Risks: No Nutritional Risk Patient : No FDLMP: n/a Poor oral hygiene: No Current occupational status: retired Current occupation: right arm Narrative: no smoking, occasional wine Meds Allergies Allergy/AdvReac Type Severity Reaction Status Date / Time No Known Allergies Allergy Verified 02/04/25 09:52 Active Medications: Current Medications Acetaminophen (Acetaminophen 325 Mg Tablet) 650 mg PO Q6H PRN PRN Reason: Pain, Mild 1-3,fever,headache Ascorbic Acid (Ascorbic Acid 500 Mg Tablet) 500 mg PO DAILY [facility] Aspirin (Aspirin 325 Mg Tablet) 325 mg PO BID [facility] Celecoxib (Celecoxib 200 Mg Capsule) 200 mg PO BID [facility] Last Admin: 02/09/25 20:44 Dose: 200 mg Docusate Sodium (Docusate Sodium 100 Mg Capsule) 100 mg PO BID [facility] Last Admin: 02/09/25 20:44 Dose: 100 mg Hydromorphone HCl (Hydromorphone Hcl 0.5 Mg/0.5 Ml Syringe) 0.25 mg IVPUSH Q4H PRN; Protocol PRN Reason: Pain, Severe (Pain Scale 7-10) Last Admin: 02/09/25 18:39 Dose: 0.25 mg Lactated Ringer's (Lr) 1,000 mls @ 100 mls/hr IVCONT .Q10H [facility] Stop: 02/10/25 08:00 Last Admin: 02/09/25 17:01 Dose: 100 mls/hr Ondansetron HCl (Ondansetron Hcl 4 Mg/2 Ml Vial) 4 mg IVPUSH Q8H PRN PRN Reason: Nausea and Vomiting Oxycodone HCl (Oxycodone Hcl Immed Release 5 Mg Tablet) 5 mg PO Q4H PRN PRN Reason: Pain, Moderate(Pain Scale 4-6) Oxycodone HCl (Oxycodone Hcl Er 10 Mg Tab.Er.12h) 10 mg PO BID [facility] Last Admin: 02/09/25 20:44 Dose: 10 mg Sodium Chloride (0.9 % Sodium Chloride Flush 3 Ml Syringe) 3 ml IVFLUSH QSHIFT [facility] Last Admin: 02/09/25 20:45 Dose: 3 ml Home Medications ?Medication ?Instructions ?Recorded ?Confirmed ?Last Taken ?Type aspirin 81 mg tablet,delayed 81 mg PO DAILY 02/13/21 02/04/25 01/26/25 History release (Adult Low Dose Aspirin) Held on 02/09/25. Instructions: Resume on 03/26/25. lwimmaxr-ftdcifq-mlyf-lutein tablet 1 tab PO DAILY 10/02/24 02/04/25 01/26/25 History ascorbic acid (vitamin C) 500 mg 500 mg PO DAILY 01/12/25 02/04/25 01/26/25 History tablet (Vitamin C) ibuprofen 200 mg tablet 800 mg PO DAILY PRN Pain 01/12/25 02/04/25 01/26/25 History Held on 02/09/25. Instructions: Resume on 03/26/25. Physical Exam Vital Signs and Narrative: Vital Signs: Last Vital Signs Temp 97.9 F 02/09/25 19:53 Pulse 73 02/09/25 19:53 Resp 18 02/09/25 19:53 BP 140/65 H 02/09/25 19:53 Pulse Ox 96 02/09/25 19:53 O2 Del Method Room Air 02/09/25 19:53 O2 Flow Rate 2 02/09/25 17:26 BMI result Body Mass Index 26.3 General: AOx3, no acute distress Resp: CTA bilaterally CVS: S1, S2, RRR GI: +BS, NT, no distention Skin: Warm, dry Neuro: Cranial nerves II-XII grossly intact bilaterally. Motor grossly intact bilaterally Extremities: No edema. normal sensation RLE. motor intact. Psych: Appropriate affect Const: General: No confusion Orientation/consciousness: No confusion Neuro: General: No confusion Results Labs 02/04/25 10:38 02/04/25 10:38 Imaging Radiologist's Impressions: Impressions Pelvis X-Ray 02/09/25 15:30 IMPRESSION: Total right hip arthroplasty prosthesis without gross malalignment. Electronically signed by: Rico Christopher MD 02/09/2025 03:40 PM EDT Assessment and Plan (1) History of total replacement of right hip: Status: Acute Plan Patient is a 69-year-old female with a past medical history significant for arthritis, s/p right total hip arthroplasty today. s/p R HOMER - POD 0 - plan per ortho - pain well managed - BP slighty elevated, likey from IVF and pain, continue to monitor Thank you for allowing me to participate in the pt's care. signing off. Please contact the medical team if any questions or concerns.
[2025-02-10] MEDS: Lactated Ringers 1,000 ML 100 ML IVCONT (03:01)
[2025-02-10 03:40] VITALS: BP 102/54; PULSE 63; RESP 18; TEMP 36.8; O2SAT 96
[2025-02-10 06:28] LABS: MANUAL DIFF FLAG NO
[2025-02-10 06:36] LABS: Hematocrit 33.9 % (37.0-47.0); Hemoglobin 11.3 g/dl (12.0-16.0); Imm Gran Abs Auto 0.04 X10*3/uL (0.00-0.03); Imm Gran Pct Auto 0.4 % (0.0-0.4); Lymphocytes Absolute Auto 1.6 X10*3/uL (1.2-4.9); Mean Corpuscular HGB Conc 33.3 g/dl (31.0-35.0); Mean Corpuscular Hemoglobin 31.0 pg (27.0-33.0); Mean Corpuscular Volume 93.1 fL (80.0-98.0); NRBC Abs Auto 0.000 X10*3/uL (0.0-0.012); NRBC Pct Auto 0.0 /100WBC (0.0-0.2); Platelet Count 244 X10*3/uL (160-400); Red Blood Count 3.64 X10*6/uL (4.20-5.50); White Blood Count 9.1 X10*3/uL (4.8-10.8)
[2025-02-10 06:46] LABS: Anion Gap 11 (12-20); Blood Urea Nitrogen 9 mg/dL (9-16); Calcium 8.6 mg/dL (8.4-10.2); Carbon Dioxide 25 mmol/L (22-29); Chloride 108 mmol/L (96-108); Creatinine Clr Calc Pharmacy 91.0; Estimated Glomerular Filt Rate > 60; Potassium 4.3 mmol/L (3.3-5.1); Sodium 140 mmol/L (135-145)
[2025-02-10 06:51] VITALS: BP 114/59; PULSE 75; RESP 16; TEMP 36.6; O2SAT 96
[2025-02-10] MEDS: 0.9 % Sodium Chloride Flush 3 ML SYRINGE IVFLUSH (08:46)
[2025-02-10] MEDS: oxyCODONE HCl ER 10 MG TAB.ER.12H PO (08:47)
--- NOTE | 2025-02-10 09:23 | HO.POSTANES ---
Post Anesthesia Evaluation Post Anesthesia Evaluation Date of Service: 02/10/25 Vital Signs: Vital Signs Temp Pulse Resp BP Pulse Ox O2 Del Method 02/10/25 06:51 98 F 75 16 114/59 L 96 Room Air 02/10/25 03:40 98.2 F 63 18 102/54 L 96 Room Air 02/09/25 22:59 98.3 F 68 18 114/56 L 95 Room Air Anesthesia: General Mental Status: Awake Pain Control: Satisfactory Nausea/Vomiting: None Hydration: Adequate Anesthesia-Related Issues: No Anes. Related Issues
--- NOTE | 2025-02-10 11:13 | MHC.CM.PN ---
Patient lives in a home w/ her . Funcationally independent. Denies use of services or DME. Has obtained DME for post-op use including: cane, front wheeled walker, shower chair, toilet riser PCP Andrea Bernal MD Reports she has an HCP naming her as [facility]. DP: Medically cleared for home w/ new [facility] for PT services, per patient preference. to transport.
[2025-02-10 14:23] VITALS: BP 105/56; PULSE 80; RESP 16; TEMP 36.6; O2SAT 98
--- NOTE | 2025-02-11 07:29 | W.PM.OPN ---
Operative Note Operative Note Date of Service: 02/09/25 Narrative: Date of Service: 02/09/25 Pre-op diagnosis: Right hip OA Post-op diagnosis: same Procedure: Right HOMER Implants: [place] Trident2 54 multi-hole / 2 acetabular acrews/ 20 deg liner Gilbert Alcalade2 #4 132 with +0/36 ceramic Surgeon: Carrington Madera MD Anesthesia: GETA and local Was an Fast Food Restaurant Manager used for this Procedure?: Yes Fast Food Restaurant Manager: Robbin Guardado Estimated blood loss (mL): 200 IV fluids (mL): 800 Pathology: other Condition: stable Disposition: PACU Patient was brought into the operating room and placed in the right lateral decubitus position. All bony prominences were well padded and the limb was prepped and draped in standard sterile fashion. A time-out was called to identify proper site procedure proper surgeon IV antibiotics and 1 g of tranexamic acid were administered. I began by making a curvilinear incision over the posterolateral aspect of the greater trochanter. Dissection was taken down to the tensor fascia which was incised in line with the incision and a Charnley retractor was placed. Cautery was used to maintain hemostasis. The hip was internally rotated and the external rotators were identified. The vessels were cauterized and a full-thickness capsular/external rotator layer was developed starting just proximal to the piriformis. This layer was tagged and a dull Hohmann retractor was placed underneath the neck in the hip was dislocated. A neck cut was made 1 cm proximal to the lesser trochanter and the head and neck were removed and measured 50-51mm on the back table. The head was deformed and eburnated. I then removed the labrum and cauterized the fovea. I started with a 44 reamer and medialized to the inner table. I sequentially reamed up to a size 54 and impacted a 54mm cup at 45 degrees of inclination and 25 degrees of version. She had a diminutive posterior wall and so the decision was made to place 2 acetabular screws. Using standard AO technique a 30 mm and the 20 mm screw were inserted into the superior safe zone. I then placed a 20 deg posterior lipped liner and turned my attention to the femur. I identified the piriformis insertion and used this as a starting point for my katiana cutter. The medius tendon was protected with a Hibs retractor. A Charnley awl was inserted in the canal and a curved curette used to remove the lateral bone. I irrigated copiously. I then sequentially broached in the patient's natural version to a size 4 and placed my trial implants. I used a #4/132/+0 based on my pre-operative template. I removed all instrumentation and copiously irrigated. I placed my final femoral implant and again took the hip through range of motion and was satisfied with the stability and length. The final +0 implant was impacted in place and the hip reduced. I then irrigated copiously and placed 1 g of local tranexamic acid. I performed a capsular closure with 2.0 fiberwire, Doroteo's fascia with 0 Vicryl, subcuticular with 2-0 Vicryl and the skin with vincenzo. Patient was placed into a sterile dressing. Patient was extubated brought to the recovery room in stable condition. There were no known complications.
== END 2025-02-10 14:45 | disposition home health service (06) ==
LOC: HO.SSS 07:59 → HO.S3 15:43
PROVIDERS: Physician Assistant; PCP Internal Medicine; Visit Provider Orthopaedic Surgery
PROC: (CPT 27130; principal; 2025-02-09 12:20)
DX: M16.11 Unilateral primary osteoarthritis, right hip (principal); M25.551 Pain in right hip; R26.2 Difficulty in walking, not elsewhere classified; R26.89 Other abnormalities of gait and mobility; Z79.1 Long term (current) use of non-steroidal anti-inflammatories (NSAID); Z79.82 Long term (current) use of aspirin; Z79.899 Other long term (current) drug therapy; Z87.891 Personal history of nicotine dependence; Z98.890 Other specified postprocedural states
CPT/HCPCS: 27130; 36415; 72170; 80048; 85025; 86850; 86900; 86901; 87640; 87641; 88304; 88311; 97116; 97161; 97165; 97535; C1713; C1776; J0131; J0690; J1100; J1171; J1885; J2250; J2405; J2704; J2795; J3010; J7120

== ENCOUNTER → 2025-02-09 07:48 | Outpatient (BNV) | payer MEDICARE, OTHER, SELFPAY | PROVIDERS: PCP Internal Medicine; Visit Provider Orthopaedic Surgery | DX: Z47.1 Aftercare following joint replacement surgery (principal); Z96.641 Presence of right artificial hip joint | CPT/HCPCS: 27130; 99024; G0180 ==

== ENCOUNTER → 2025-02-09 07:48 | Outpatient (BNV) | payer MEDICARE, OTHER, SELFPAY | PROVIDERS: PCP Internal Medicine; Visit Provider Physician Assistant | DX: Z96.641 Presence of right artificial hip joint (principal) | CPT/HCPCS: 99222 ==

== ENCOUNTER → 2025-02-09 15:17 | Outpatient (BNV) | payer MEDICARE, OTHER, SELFPAY | PROVIDERS: PCP Internal Medicine; Visit Provider Radiology Diagnostic Radiology | DX: M51.379 Other intervertebral disc degeneration, lumbosacral region without mention of lumbar back pain or lower extremity pain (principal) | CPT/HCPCS: 72170 ==

== ENCOUNTER 2025-02-25 09:30 | Outpatient (AMB) | payer MEDICARE, OTHER, SELFPAY ==
--- NOTE | 2025-02-25 09:35 | A.OFFVIS_ITS ---
Intake Visit Reasons: 2WKPO: R HOMER w/NE 02/09/25 Intake Note: Rebeka is an 69 year old female who presents today post operatively after undergoing a right total hip arthroplasty, DOS 02/09/[address] Madera. Patient reports she is doing great, her pain has been tolerable. Patient has concerns feeling as if the metal inside is pushing torwards her groin. Allergies No Known Allergies Allergy (Verified 02/25/25 09:42) Medication List - Last Reconciled 02/25/25 by Robbin Guardado PA-C acetaminophen 650 mg (2 x 325 mg) PO Q6H PRN 30 days ascorbic acid (vitamin C) (Vitamin C) 500 mg PO DAILY aspirin 325 mg PO BID 42 days aspirin (Adult Low Dose Aspirin) 81 mg PO DAILY Held on 02/09/25. Instructions: Resume on 03/26/25. celecoxib 200 mg PO BID 30 days docusate sodium 100 mg PO BID 14 days ibuprofen 800 mg PO DAILY PRN Held on 02/09/25. Instructions: Resume on 03/26/25. [id number]-fgrwvwi-mugp-lutein 1 tab PO DAILY oxycodone 5 mg PO Q4H PRN 7 days [Raised toilet seat duration - 99 days] [SHOWER CHAIR As directed duration 99 days] walker Folding Front wheeled walker duration 99 days HPI HPI 2WKPO: R HOMER w/NE 02/09/25: Details: 69-year-old female returns to the office today status post right total hip arthroplasty from 02/09/[address] Madera. She is ambulating with a cane. She has completed her home physical therapy and begins outpatient physical therapy tomorrow. [facility] Medical History Arthritis Surgical History History of total replacement of right hip Hx of hernia repair Hx of wisdom tooth extraction H/O colonoscopy Social History Household Members: Spouse Housing: House Are you a primary manager critical care unit to a significant other at home: No Do you presently have visiting nurse or other home services: No Patient Tobacco Use Status: Former Tobacco user Tobacco use type: Cigarette Years Smoked: 20 service: No Current occupational status: retired Current occupation: right arm Review of Systems Const All systems reviewed & are unremarkable except as noted in HPI and below Physical Exam Extrem Other: Right hip incision clean dry and intact. No erythema or drainage. No pain with range of motion. Calf supple and nontender neurovascularly intact. Assessment & Plan Assessment & Plan (1) Status post total replacement of right hip: Code(s): Z96.641 - Presence of right artificial hip joint Category: Surgical Plan: Jaime removed today Steri-Strips applied. She will continue with physical therapy for gait training and strengthening exercises. Increase activity as tolerated. Reminded the patient no dental visits until she is 3 months postop. She should refrain from driving for another 4 weeks. She will continue with her anticoagulant therapy for another 4 weeks. She will return in [address] Madera, sooner if needed. Coding Level of Care Code Global (86748) Diagnoses Status post total replacement of right hip Z96.641
== END 2025-02-25 11:19 | disposition home or self-care (01) ==
LOC: HO.HOS 09:34
PROVIDERS: PCP Internal Medicine; Visit Provider Physician Assistant
DX: Z96.641 Presence of right artificial hip joint (principal)
CPT/HCPCS: 99024

== ENCOUNTER → 2025-02-25 09:30 | Outpatient (BNVA) | payer MEDICARE, OTHER, SELFPAY | PROVIDERS: PCP Internal Medicine; Visit Provider Physician Assistant | DX: Z47.1 Aftercare following joint replacement surgery (principal); Z96.641 Presence of right artificial hip joint | CPT/HCPCS: 99212 ==

== ENCOUNTER 2025-03-18 12:51 | Outpatient (AMB) | payer MEDICARE, OTHER, SELFPAY ==
--- NOTE | 2025-03-18 12:53 | A.OFFVIS_ITS ---
Vital Signs 03/18/25 12:54 Height 5 ft 7 in Weight 165 lb BMI 25.8 Intake Visit Reasons: 6WKPO: R HOMER w/NE 02/09/25 Intake Note: Rebeka is a 69 year old female who presents today for a post operative visit about 5 weeks s/p Right HOMER 02/09/25. Continues to work with [facility]. Patient reports that she is doing well, she has no pain. She does report some intermittant numbness surrounding the incision site. Allergies No Known Allergies Allergy (Verified 02/25/25 09:42) HPI HPI 6WKPO: R HOMER w/NE 02/09/25: Details: Rebeka is a 69 year old female who presents today for a post operative visit about 5 weeks s/p Right HOMER 02/09/25. Continues to work with [facility]. Patient reports that she is doing well, she has no pain. She does report some intermittant numbness surrounding the incision site. COUNT INCLUDES THE [facility] Medical History Arthritis Surgical History History of total replacement of right hip Hx of hernia repair Hx of wisdom tooth extraction H/O colonoscopy Social History Household Members: Spouse Housing: House Are you a primary rn long term care to a significant other at home: No Do you presently have visiting nurse or other home services: No Patient Tobacco Use Status: Former Tobacco user Tobacco use type: Cigarette Years Smoked: 20 service: No Current occupational status: retired Current occupation: right arm Physical Exam Vital Signs: BMI result Body Mass Index 25.8 Extrem Other: Incision clean dry and intact. Normal gait. No assistive device. No pain with hip range of motion. Assessment & Plan Assessment & Plan (1) Status post total replacement of right hip: Code(s): Z96.641 - Presence of right artificial hip joint Category: Surgical Plan: Doing well status post hip replacement. May follow up in 6 weeks. May resume baby dose of aspirin as she was taking this preoperatively. Coding Level of Care Code Global (64215) Diagnoses Status post total replacement of right hip Z96.641
[2025-03-18 12:54] VITALS: BMI 25.8
== END 2025-03-18 13:20 | disposition home or self-care (01) ==
LOC: HO.HOS 12:52
PROVIDERS: PCP Internal Medicine; Visit Provider Orthopaedic Surgery
DX: Z96.641 Presence of right artificial hip joint (principal)
CPT/HCPCS: 99024

== ENCOUNTER → 2025-03-18 12:51 | Outpatient (BNVA) | payer MEDICARE, OTHER, SELFPAY | PROVIDERS: PCP Internal Medicine; Visit Provider Orthopaedic Surgery | DX: Z47.1 Aftercare following joint replacement surgery (principal); Z96.641 Presence of right artificial hip joint | CPT/HCPCS: 99212 ==

== ENCOUNTER 2025-03-26 06:54 | Outpatient (RCR) | payer MEDICARE, OTHER, SELFPAY ==
--- NOTE | 2025-02-26 14:43 | MHC.PT.EP ---
[facility] [place] Office [place] [facility] [place] [facility] [address] Rajeev Rainey [address] [phone] F: [phone] F: [phone] F: [phone] F: [phone] Physical Therapy Plan of Care Date of Evaluation: 02/26/25 Date of Surgery: Diagnosis: RIGHT hip moderate/severe OA RIGHT hip HOMER (02/09/25) Dr. Madera (RS) Assessment: Rebeka Thompson (: [birth year]) is a 69 y.o. female who is referred to PT by Robbin Guardado PA-C, surgery performed by Dr. Carrington Madera MD with Dx of RIGHT total hip arthroplasty (DOS: 02/09/25). Patient impairments include pain, limited hip ROM, weakness R hip, impaired skin integrity with healing scar, antalgic gait with AD use. Patient current functional limitations are prolonged standing, walking, bending, sleeping, reciprocal stairs. Patient will benefit from skilled PT to address aforementioned impairments and functional limitations to meet established goals. Frequency and Duration: The patient will be seen 2x/week for 6 weeks Short Term Goals: 3 weeks Patient demonstrates consistency and independence with HEP to self manage symptoms. Patient verbalizes and demonstrates R hip precautions. Alf Goals: 6 weeks Patient demonstrates increased R hip extension 10 degrees and is able to ambulate 100 ft safely without equal step lengths without AD use. Patient presents with increased R hip flexion 4/5 and is able to ascend/descend reciprocal stairs with railing and no cane safely. Treatment Plan: Modalities to reduce pain, spasms and effusion. Manual therapy to restore motion and function. Therapeutic exercise to improve strength and flexibility. Neuromuscular re-education for posture and balance. Therapeutic activities to return to functional activities of daily living. Electronically signed by: Alcon Blanco, PT, DPT Please sign and return to therapist. Thank you for your referral.
--- NOTE | 2025-04-09 13:30 | MHC.PT.DC ---
[facility] [place] Office [place] Office [place] Office [address] Rajeev Rainey [address] [phone] F: [phone] F: [phone] F: [phone] F: [phone] Physical Therapy Discharge Report Diagnosis: RIGHT hip moderate/severe OA RIGHT hip HOMER (02/09/25) Dr. Madera () Date of Surgery: 02/09/25 Date of Evaluation: 02/26/25 Date of Discharge: 04/09/25 Treatments to Date: 5 Cancellations to Date: No Shows to Date: Discharge Status: Achieved Goals Improved Function Independent with HEP Patient Elected to Stop Discharge Summary: Rebeka did well with PT interventions including balance activities, therapeutic exercises and activities incorporating functional movements. She called to self discharge from PT due to progress. Electronically signed by: Alcon Blanco, PT, DPT Please sign and return to therapist. Thank you for your referral.
== END 2025-04-09 13:29 | disposition home or self-care (01) ==
LOC: HO.PT 06:54
PROVIDERS: PCP Internal Medicine; Visit Provider Physician Assistant
DX: Z47.1 Aftercare following joint replacement surgery (principal); Z96.641 Presence of right artificial hip joint
CPT/HCPCS: 97110; 97112; 97161; 97530

== ENCOUNTER 2025-04-29 08:22 | Outpatient (REF) | payer MEDICARE, OTHER, SELFPAY ==
--- NOTE | ~2025-04-29 | XR_ITS ---
EXAMINATION: XR PELVIS CLINICAL INFORMATION: M25.559 - Pain in unspecified hip COMPARISON: Previous x-ray most recent January 16 TECHNIQUE: AP view of the pelvis. FINDINGS: There is a right hip replacement and satisfactory position. No fracture, dislocation or x-ray evidence of loosening. There is moderate left hip osteoarthritis with joint space narrowing and osteophyte formation. Bones of the pelvis are unremarkable. Soft tissues are unremarkable. There is mild curvature of the visualized lower lumbar spine and degenerative change. XR/XR pelvis 1-2V IMPRESSION: Satisfactory appearance of right hip replacement. Moderate left hip osteoarthritis. Electronically signed by: Regina Edwards MD 04/29/2025 08:49 AM EDT
== END 2025-04-29 08:23 | disposition home or self-care (01) ==
LOC: HO.HOSX 08:22
PROVIDERS: Visit Provider Orthopaedic Surgery
DX: Z47.89 Encounter for other orthopedic aftercare (principal); M25.551 Pain in right hip; Z96.641 Presence of right artificial hip joint
CPT/HCPCS: 72170; 99212

== ENCOUNTER 2025-04-29 08:25 | Outpatient (AMB) | payer MEDICARE, OTHER, SELFPAY ==
[2025-04-29 08:35] VITALS: BMI 25.8
--- NOTE | 2025-04-29 08:35 | MHC.OFFVIS ---
Vital Signs 04/29/25 08:35 Height 5 ft 7 in Weight 165 lb BMI 25.8 Intake Visit Reasons: PO-R HOMER w/NE 02/09/25-6 WK follow up Intake Note: Rebeka is a 69 year old female who presents today for a post operative visit about 3 months s/p Right HOMER 02/09/2025. She continues to work with [facility]. Has resumed taking 81mg Aspirin. Patient reports that she is doing well but she had some increased pain in the posterior aspect of the right hip and in the groin - this was onset with exterior rotation of the right hip. She is also having some discomfort with the cold. She was taking celebrex which was very helpful and she is looking for a refill of this. Allergies No Known Allergies Allergy (Verified 04/29/25 08:36) HPI HPI PO-R HOMER w/NE 02/09/25-6 WK follow up: Details: Rebeka is doing well s/p right HOMER. She has had some mild pain after activity that has resolved. She denies numbness and tingling. She is able to walk comfortably with only a mild painless limp. [facility] Medical History Arthritis of right hip Radial head fracture Arthritis Surgical History History of total replacement of right hip Hx of hernia repair Hx of wisdom tooth extraction H/O colonoscopy Social History Household Members: Spouse Housing: House Are you a primary district manager primary care sales to a significant other at home: No Do you presently have visiting nurse or other home services: No Patient Tobacco Use Status: Former Tobacco user Tobacco use type: Cigarette Years Smoked: 20 service: No Current occupational status: retired Current occupation: right arm Physical Exam Vital Signs: BMI result Body Mass Index 25.8 Extrem Other: No pain with hip range of motion Walking comfortably with minimal Trendelenburg gait. Negative Trendelenburg sign Results Reviewed Results Reviewed: I personally reviewed relevant radiographs. Right HOMER in expected post operative position with no hardware complications or evidence of loosening Assessment & Plan Assessment & Plan (1) Status post total replacement of right hip: Code(s): Z96.641 - Presence of right artificial hip joint Category: Surgical Plan: Doing well status post right hip replacement. She has improved and her gait mechanics should continue to improve. She should continue her strengthening exercises and may follow up as needed. Discussed dental prophylaxis. I sent a prescription for Celebrex to her pharmacy. Orders: Orders XR pelvis 1-2V Today M25.559 - Pain in unspecified hip Medications: Changed From celecoxib 200 mg PO BID 30 days 60 caps 0RF To celecoxib 200 mg PO DAILY PRN 30 caps 2RF pain 30 days Coding Level of Care Code Global (66970) Diagnoses Status post total replacement of right hip Z96.641
== END 2025-04-29 08:50 | disposition home or self-care (01) ==
LOC: HO.HOS 08:26
PROVIDERS: PCP Internal Medicine; Visit Provider Orthopaedic Surgery
DX: Z96.641 Presence of right artificial hip joint (principal)
CPT/HCPCS: 99024

== ENCOUNTER → 2025-04-29 08:27 | Outpatient (BNV) | payer MEDICARE, OTHER, SELFPAY | PROVIDERS: Visit Provider Radiology Diagnostic Radiology | DX: M16.12 Unilateral primary osteoarthritis, left hip (principal) | CPT/HCPCS: 72170 ==